=== PATIENT | male | born 1985 | race American Indian/Alaskan Native ===

== ENCOUNTER 2020-07-31 12:39 | Emergency (ER) | payer SELFPAY ==
[2020-07-31 12:44] VITALS: BP 151/109
[2020-07-31] MEDS ORDERED: KETOROLAC 10 MG TAB PO ONE (15:02)
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
== END 2020-07-31 16:29 | disposition home or self-care (01) ==
LOC: ED 12:39
DX: S16.1XXA Strain of muscle, fascia and tendon at neck level, initial encounter (principal); S39.012A Strain of muscle, fascia and tendon of lower back, initial encounter; S23.3XXA Sprain of ligaments of thoracic spine, initial encounter; S63.90XA Sprain of unspecified part of unspecified wrist and hand, initial encounter; Z79.899 Other long term (current) drug therapy; V49.49XA Driver injured in collision with other motor vehicles in traffic accident, initial encounter; Y93.89 Activity, other specified; Y92.488 Other paved roadways as the place of occurrence of the external cause; Y99.8 Other external cause status
CPT/HCPCS: 72040; 72070; 72100; 99283

== ENCOUNTER 2021-05-11 10:22 | Emergency (ER) | payer SELFPAY ==
[2021-05-11] MEDS ORDERED: ASPIRIN 325 MG TAB PO ONE (10:35)
[2021-05-11] MEDS ORDERED: amLODIPine 5 MG TAB PO ONE (10:35)
--- NOTE | 2021-05-11 10:43 | Emergency Department Report ---
ED Chest Pain HPI - General Chief Complaint: Chest Pain Stated Complaint: HEADACHE/CHEST PAIN Time Seen by Provider: 05/11/21 10:34 Source: patient Mode of arrival: Ambulatory Limitations: No Limitations - History of Present Illness Initial Comments: Patient is a 36-year-old male who presents emergency room with complaints of a headache that began approximately 45 minutes prior to arrival. He states that he woke up with a headache which felt like a pressure. He states he was also having left-sided chest tightness and states he felt a pain down his left arm. He denies any radiation to his back or his jaw. He denies any shortness of breath, pleuritic chest pain, exertional chest pain, nausea, vomiting, diarrhea, cough, fever, leg swelling. He states he last saw a primary care doctor approximately a year ago was advised that his blood pressure was slightly elevated but he never followed back up, he has never been on blood pressure medication. He denies any other medical problems. He has an allergy to penicillin. He states he does occasionally smoke tobacco. He states his only past family cardiac history is that his grandmother this year from congestive heart failure. - Related Data Previous Rx's Medication Instructions Recorded Last Taken Type Sulfamethoxazole/Trimethoprim 1 each PO BID #14 tablet 09/18/14 Unknown Rx [Bactrim Ds] Ketorolac [Toradol] 10 mg PO Q6H PRN #20 tablet 07/31/20 Unknown Rx Methocarbamol [Robaxin] 500 mg PO TID PRN #20 tablet 07/31/20 Unknown Rx Aspirin [Adult Aspirin] 81 mg PO DAILY #30 tablet. 05/11/21 Unknown Rx amLODIPine 10 mg PO DAILY #30 tab 05/11/21 Unknown Rx Allergies Allergy/AdvReac Type Severity Reaction Status Date / Time Penicillins AdvReac Unknown Verified 09/18/14 15:43 Heart Score - HEART Score History: Moderately suspicious EKG: Normal Age: < 45 Risk factors: > 3 risk factors or hx of atherosclerotic disease Troponin: < normal limit HEART Score: 3 - EKG Read Time Time EKG Completed: 10:51 EKG Read Time: 10:57 ED Review of Systems ROS: Stated complaint: HEADACHE/CHEST PAIN Other details as noted in HPI Comment: All other systems reviewed and negative ED Past Medical Hx - Past Medical History Previous Medical History?: No - Surgical History Past Surgical History?: Yes Additional Surgical History: leg fx surgery - Social History Smoking Status: Never Smoker Substance Use Type: None - Medications Home Medications: Home Medications Medication Instructions Recorded Confirmed Last Taken Type Sulfamethoxazole/Trimethoprim 1 each PO BID #14 tablet 09/18/14 Unknown Rx [Bactrim Ds] Ketorolac [Toradol] 10 mg PO Q6H PRN #20 tablet 07/31/20 Unknown Rx Methocarbamol [Robaxin] 500 mg PO TID PRN #20 tablet 07/31/20 Unknown Rx Aspirin [Adult Aspirin] 81 mg PO DAILY #30 tablet. 05/11/21 Unknown Rx amLODIPine 10 mg PO DAILY #30 tab 05/11/21 Unknown Rx ED Physical Exam - General Limitations: No Limitations General appearance: alert, in no apparent distress - Head Head exam: Present: atraumatic, normocephalic - Eye Eye exam: Present: normal appearance, PERRL, EOMI - ENT ENT exam: Present: mucous membranes moist - Respiratory Respiratory exam: Present: normal lung sounds bilaterally. Absent: respiratory distress, wheezes, rales, rhonchi, stridor, chest wall tenderness, accessory muscle use, decreased breath sounds, prolonged expiratory - Cardiovascular Cardiovascular Exam: Present: regular rate, normal rhythm, normal heart sounds. Absent: systolic murmur, diastolic murmur, rubs, gallop - Neurological Exam Neurological exam: Present: alert, oriented X3, CN II-XII intact, normal gait. Absent: motor sensory deficit - Psychiatric Psychiatric exam: Present: normal affect, normal mood - Skin Skin exam: Present: warm, dry, intact ED Course Vital Signs 05/11/21 05/11/21 05/11/21 10:28 12:00 12:16 Temperature 98.3 F Pulse Rate 72 71 72 Respiratory 18 20 11 L Rate Blood Pressure 170/122 164/117 156/115 O2 Sat by Pulse 97 98 99 Oximetry 05/11/21 05/11/21 05/11/21 12:30 12:46 13:00 Temperature Pulse Rate 70 68 69 Respiratory 13 14 16 Rate Blood Pressure 159/110 154/111 162/112 O2 Sat by Pulse 97 99 98 Oximetry 05/11/21 05/11/21 05/11/21 13:16 13:30 13:46 Temperature Pulse Rate 67 66 67 Respiratory 12 16 15 Rate Blood Pressure 165/116 173/119 167/117 O2 Sat by Pulse 100 99 99 Oximetry 05/11/21 14:00 Temperature Pulse Rate 72 Respiratory 12 Rate Blood Pressure 173/115 O2 Sat by Pulse 100 Oximetry ED Medical Decision Making - Lab Data Result diagrams: 05/11/21 11:02 05/11/21 11:02 Lab Results 05/11/21 05/11/21 05/11/21 Range/Units 11:02 11:02 13:29 WBC 5.3 (4.5-11.0) K/mm3 RBC 4.79 (3.65-5.03) M/mm3 Hgb 14.4 (11.8-15.2) gm/dl Hct 41.5 (35.5-45.6) % MCV 87 (84-94) fl MCH 30 (28-32) pg MCHC 35 H (32-34) % RDW 13.6 (13.2-15.2) % Plt Count 238 (140-440) K/mm3 Lymph % (Auto) 23.3 (13.4-35.0) % Pierce % (Auto) 8.4 H (0.0-7.3) % Eos % (Auto) 5.5 H (0.0-4.3) % Baso % (Auto) 2.2 H (0.0-1.8) % Lymph # (Auto) 1.2 (1.2-5.4) K/mm3 Pierce # (Auto) 0.4 (0.0-0.8) K/mm3 Eos # (Auto) 0.3 (0.0-0.4) K/mm3 Baso # (Auto) 0.1 (0.0-0.1) K/mm3 Seg Neutrophils % 60.6 (40.0-70.0) % Seg Neutrophils # 3.2 (1.8-7.7) K/mm3 Sodium 138 (137-145) mmol/L Potassium 3.8 (3.6-5.0) mmol/L Chloride 104.4 (98-107) mmol/L Carbon Dioxide 23 (22-30) mmol/L Anion Gap 14 mmol/L BUN 17 (9-20) mg/dL Creatinine 1.1 (0.8-1.3) mg/dL Estimated GFR > 60 ml/min BUN/Creatinine Ratio 15 % Glucose 94 (75-100) mg/dL Calcium 9.1 (8.4-10.2) mg/dL Total Bilirubin 0.70 (0.1-1.2) mg/dL AST 18 (5-40) units/L ALT 22 (7-56) units/L Alkaline Phosphatase 37 (35-129) units/L Troponin T < 0.010 < 0.010 (0.00-0.029) ng/mL Total Protein 7.5 (6.3-8.2) g/dL Albumin 4.5 (3.9-5) g/dL Albumin/Globulin Ratio 1.5 % Vital Signs 05/11/21 05/11/21 05/11/21 10:28 12:00 12:16 Temperature 98.3 F Pulse Rate 72 71 72 Respiratory 18 20 11 L Rate Blood Pressure 170/122 164/117 156/115 O2 Sat by Pulse 97 98 99 Oximetry 05/11/21 05/11/21 05/11/21 12:30 12:46 13:00 Temperature Pulse Rate 70 68 69 Respiratory 13 14 16 Rate Blood Pressure 159/110 154/111 162/112 O2 Sat by Pulse 97 99 98 Oximetry 05/11/21 05/11/21 05/11/21 13:16 13:30 13:46 Temperature Pulse Rate 67 66 67 Respiratory 12 16 15 Rate Blood Pressure 165/116 173/119 167/117 O2 Sat by Pulse 100 99 99 Oximetry 05/11/21 14:00 Temperature Pulse Rate 72 Respiratory 12 Rate Blood Pressure 173/115 O2 Sat by Pulse 100 Oximetry - EKG Data EKG shows normal: sinus rhythm, axis, intervals, QRS complexes, ST-T waves Rate: normal - EKG Data 05/11/21 13:45 Repeat EKG Rate 68 bpm Rhythm normal sinus rhythm Normal axis, normal intervals, no ST-T changes, normal QRS complexes No changes from first EKG - Radiology Data Radiology results: report reviewed Ordering Physician: CHARBEL BROWN Date of Service: 05/11/21 Procedure(s): XR chest routine 2V Accession Number(s): [id number] cc: CHARBEL BROWN Fluoro Time In Minutes: CHEST 2 VIEWS INDICATION / CLINICAL INFORMATION: Chest Pain. COMPARISON: None available. FINDINGS: SUPPORT DEVICES: None. HEART / MEDIASTINUM: No significant abnormality. LUNGS / PLEURA: No significant pulmonary or pleural abnormality. No pneumothorax. ADDITIONAL FINDINGS: No significant additional findings. IMPRESSION: 1. No acute findings. Signer Name: Chuy Pollard MD Signed: 05/11/2021 10:58 AM Workstation Name: [id number] Transcribed By: TL Dictated By: Chuy Pollard MD Electronically Authenticated By: Chuy Pollard MD Signed Date/Time: 05/11/211057 DD/ 57 TD/TT: - Medical Decision Making Patient is a 36-year-old male who presents emergency room with complaints of a headache that began approximately 45 minutes prior to arrival. He states that he woke up with a headache which felt like a pressure. He states he was also having left-sided chest tightness and states he felt a pain down his left arm. He denies any radiation to his back or his jaw. He denies any shortness of breath, pleuritic chest pain, exertional chest pain, nausea, vomiting, diarrhea, cough, fever, leg swelling. He states he last saw a primary care doctor approximately a year ago was advised that his blood pressure was slightly elevated but he never followed back up, he has never been on blood pressure medication. He denies any other medical problems. He has an allergy to p enicillin. He states he does occasionally smoke tobacco. He states his only past family cardiac history is that his grandmother this year from congestive heart failure. Vitals with elevated blood pressure, otherwise stable. Labs are normal. Troponin is negative x2. EKG is within normal limits x2. Patient is PERC criteria negative for PE, PE unlikely. Heart score is 3, low risk for cardiac event. Discussed case with Dr. Mistry who recommended outpatient cardiology follow-up and daily aspirin and blood pressure medication. Discussed the importance of follow-up with patient. Discussed return precautions. Advised pt Please take medication as prescribed. Increase your w ater intake. eat a low sodium diet. Incorporate 30-60 minutes daily exercise. Follow-up with your primary care doctor. Follow-up with a chief fishery division. Return to emergency room for any worsening symptoms. Critical care attestation.: If time is entered above; I have spent that time in minutes in the direct care of this critically ill patient, excluding procedure time. ED Disposition Clinical Impression: Hypertensive urgency Chest pain Qualifiers: Chest pain type: unspecified Qualified Code(s): R07.9 - Chest pain, unspecified Headache Qualifiers: Headache type: unspecified Headache chronicity pattern: acute headache Intractability: not intractable Qualified Code(s): R51.9 - Headache, unspecified Disposition: - TO HOME OR SELFCARE Is pt being admited?: No Does the pt Need Aspirin: Yes (given) Condition: Stable Instructions: Nonspecific Chest Pain, Adult, Managing Your Hypertension Additional Instructions: Please take medication as prescribed. Increase your water intake. eat a low sodium diet. Incorporate 30-60 minutes daily exercise. Follow-up with your primary care doctor. Follow-up with a chief fishery division. Return to emergency room for any worsening symptoms. Prescriptions: Aspirin [Adult Aspirin] 81 mg PO DAILY #30 tablet. amLODIPine 10 mg PO DAILY #30 tab Referrals: KELLY ENGLAND MD [Staff Physician] - 3-5 Days CONG PRINCE MD [Staff Physician] - 3-5 Days Time of Disposition: 14:09 Print Language: PERSIAN
--- NOTE | 2021-05-11 11:03 | XRay Report ---
CHEST 2 VIEWS INDICATION / CLINICAL INFORMATION: Chest Pain. COMPARISON: None available. FINDINGS: SUPPORT DEVICES: None. HEART / MEDIASTINUM: No significant abnormality. LUNGS / PLEURA: No significant pulmonary or pleural abnormality. No pneumothorax. ADDITIONAL FINDINGS: No significant additional findings. IMPRESSION: 1. No acute findings. Signer Name: Chuy Pollard MD Signed: 05/11/2021 10:58 AM Workstation Name: [id number]
[2021-05-11 11:34] LABS: Basophils # (Auto) 0.1 K/mm3 (0.0-0.1); Basophils % (Auto) 2.2 % (0.0-1.8); Eosinophils # (Auto) 0.3 K/mm3 (0.0-0.4); Eosinophils % (Auto) 5.5 % (0.0-4.3); Hematocrit 41.5 % (35.5-45.6); Hemoglobin 14.4 gm/dl (11.8-15.2); Lymphocytes # (Auto) 1.2 K/mm3 (1.2-5.4); Lymphocytes % (Auto) 23.3 % (13.4-35.0); Mean Corpuscular HGB Conc 35 % (32-34); Mean Corpuscular Volume 87 fl (84-94); Monocytes # (Auto) 0.4 K/mm3 (0.0-0.8); Monocytes % (Auto) 8.4 % (0.0-7.3); Platelet Count 238 K/mm3 (140-440); Red Blood Count 4.79 M/mm3 (3.65-5.03); Red Cell Distribution Width 13.6 % (13.2-15.2)
[2021-05-11 11:44] LABS: Alanine Aminotransferase 22 units/L (7-56); Albumin 4.5 g/dL (3.9-5); BUN/Creatinine Ratio 15; Blood Urea Nitrogen 17 mg/dL (9-20); Calcium 9.1 mg/dL (8.4-10.2); Hemolysis Index 8
[2021-05-11 14:33] VITALS: BP 173/115
--- NOTE | 2021-05-15 14:19 | Electrocardiograph Report ---
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
--- NOTE | 2021-05-15 14:20 | Electrocardiograph Report ---
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
== END 2021-05-11 14:25 | disposition home or self-care (01) ==
LOC: ED 10:22
DX: I16.0 Hypertensive urgency (principal); R07.9 Chest pain, unspecified; R51.9 Headache, unspecified; Z88.0 Allergy status to penicillin; Z79.899 Other long term (current) drug therapy; Z98.890 Other specified postprocedural states
CPT/HCPCS: 36415; 71046; 80053; 84484; 85025; 93005